=== PATIENT | male | born 1965 | race Caucasian/White ===

== ENCOUNTER → 2016-06-14 | Outpatient (CLI) | payer BC ==
[~2016-06-14] MED LIST: ACET-1256 PO; ASPI81TA28 PO; CLR10 PO; FLUT0.0529 NAE; LPR25 PO; LSX20 PO; POTA10CA28 PO; VALS320T PO; WARF-246 PO
[2016-06-14 09:58] LABS: ALT/SGPT 51 U/L (12-78); AST/SGOT 27 U/L (15-37); BLOOD UREA NITROGEN 15 mg/dl (7-18); BUN/CREATININE RATIO 12.8 (10-20); CALCIUM 8.6 mg/dl (8.5-10.1); CARBON DIOXIDE 26 mmol/L (21-32); CHLORIDE 107 mmol/L (98-107); CHOLESTEROL 147 mg/dl (0-200); GLUCOSE 91 mg/dl (70-99); POTASSIUM 4.2 mmol/L (3.5-5.1); SODIUM 142 mmol/L (136-145)
[2016-06-14 10:01] LABS: CHOLESTEROL/HDL RATIO 4.7; HDL CHOLESTEROL 31 mg/dl; LDL CHOLESTEROL CALCULATED 93 mg/dl; TRIGLYCERIDES 113 mg/dl (0-150); VERY LOW DENSITY LIPOPROT CALC 23 mg/dl
[2016-06-14 10:14] LABS: ESTIMATED AVERAGE GLUCOSE 105 mg/dl; HA1C FLAG Normal (Normal)
== END | disposition home or self-care (01) ==
LOC: C.LAB1850 08:23
PROVIDERS: ATTEND Internal Medicine
DX: I10 Essential (primary) hypertension (principal); E53.8 Deficiency of other specified B group vitamins; R73.03 Prediabetes

== ENCOUNTER → 2016-09-24 | Outpatient (CLI) | payer BC ==
[~2016-09-24] VITALS: Ht 182.9 cm; Wt 323.4 kg
[~2016-09-24] MED LIST changes: +BUPR-79 PO; +DOXY100C2 PO; +DVN80 PO; +FLUT0.15; +METO-551 PO; +WARF3TAB6 PO
[2016-09-24 14:45] VITALS: BP 119/80; PULSE 69; Ht 182.9 cm; Wt 323.4 kg
== END | disposition home or self-care (01) ==
LOC: C.NEUR 14:23
PROVIDERS: ATTEND Physician Assistant
DX: G47.33 Obstructive sleep apnea (adult) (pediatric) (principal)

== ENCOUNTER → 2017-02-09 | Outpatient (CLI) | payer BC ==
[~2017-02-09] MED LIST changes: -ACET-1256 PO; -FLUT0.0529 NAE; -LPR25 PO; -LSX20 PO; -POTA10CA28 PO; -VALS320T PO; -WARF-246 PO
[2017-02-09 17:23] LABS: BASO % 0.2 %; BASO ABS # 0.02 K/uL (0-0.2); COMPLETE YES; EOS % 2.1 %; IG% 0.2 %; MEAN CELL VOLUME 91.7 fL (80-100); MEAN CORPUSCULAR HEMOGLOBIN 31.3 pg (25-34); MEAN CORPUSCULAR HGB CONC 34.1 g/dl (32-36); MEAN PLATELET VOLUME 11.1 fL (7.4-10.4); NEUT % 74.5 %; PLATELET COUNT 184 K/uL (130-400); RED BLOOD COUNT 4.47 M/uL (4.7-6.1); WHITE BLOOD COUNT 9.37 K/uL (4.8-10.8)
[2017-02-09 17:25] LABS: URINE APPEARANCE CLEAR (CLEAR); URINE BILIRUBIN NEG (NEG); URINE COLOR YELLOW; URINE NITRITE NEG (NEG); URINE SPECIFIC GRAVITY 1.027 (1.000-1.030); UROBILINOGEN NEG (NEG)
[2017-02-09 17:43] LABS: MANUAL MICROSCOPIC REQUIRED? NO; REVIEW REQ? NO
== END | disposition home or self-care (01) ==
LOC: C.LAB1850 16:22
PROVIDERS: ATTEND Nurse Practitioner Adult Health
DX: N45.1 Epididymitis (principal); R68.83 Chills (without fever)

== ENCOUNTER → 2017-02-16 | Outpatient (CLI) | payer BC ==
[~2017-02-16] MED LIST changes: +OPTIRAY 320 IV PRN
--- NOTE | 2017-02-16 09:15 | DIAGNOSTIC IMAGING REPORT ---
CT OF THE ABDOMEN AND PELVIS WITH CONTRAST CLINICAL HISTORY: Inguinal hernia with Valsalva. Groin pain. COMPARISON STUDY: Testicular/groin ultrasound February 07, [address] of the abdomen and pelvis October 07, 2013. TECHNIQUE: Following IV administration of 93 mL of Optiray-320, axial images of the abdomen and pelvis were obtained from the lung bases to the proximal femurs. Images were reviewed in the axial, sagittal, and coronal planes. IV contrast was administered without complication. A dose lowering technique was utilized adhering to the principles of ALARA. CT DOSE: 1263.82 mGycm FINDINGS: Lung bases are clear. The liver, spleen, adrenal glands, kidneys and pancreas are normal. There is no hydronephrosis. There is no evidence for a bowel obstruction. The appendix is normal. Note is made of a 3.1 cm gas and fluid containing rounded structure which projects posterior to the symphysis pubis. No inguinal hernia is identified by CT. There is no fluid collection within the pelvis. No lymphadenopathy is present. No suspicious osseous lesions are identified. Scrotal surgical clips are noted. IMPRESSION: 1. No inguinal hernia identified. 2. Minimal groin infiltration, slightly greater on the left, a nonspecific finding. No fluid collection to suggest abscess. 3. 3.1 cm gas and fluid containing rounded structure adjacent to the symphysis pubis. This likely reflects a gas-filled parasymphyseal pubic cyst associated with degenerative joint disease. Electronically signed by: Wilder Wan M.D. 02/16/2017 9:14 AM Dictated Date/Time: 02/16/2017 8:56 AM
== END | disposition home or self-care (01) ==
LOC: C.CTS 08:17
PROVIDERS: ATTEND Surgery
DX: K40.90 Unilateral inguinal hernia, without obstruction or gangrene, not specified as recurrent (principal)

== ENCOUNTER → 2017-07-18 | Day surgery (SDC) | payer BC, OTHER ==
[2017-06-30 14:00] VITALS: Ht 182.9 cm; Wt 134.6 kg
[~2017-07-18] VITALS: Ht 182.9 cm; Wt 134.6 kg
[~2017-07-18] MED LIST changes: +AMOX500C3 PO; +ASPCH81X PO; -ASPI81TA28 PO; -DOXY100C2 PO; -FLUT0.15; +FLUT50SP45 NAE; +LIDOCAINE HCL 2% 2 ML VIAL (20MG/ML) ONE; -METO-551 PO; +METO25TA3 PO; -OPTIRAY 320 IV PRN; +PROPOFOL IV EMULSION 10 MG/ML 20 ML VIAL IV ONE; +SODIUM CHLORIDE 0.9% 500ML 500 ML IV ONE
--- NOTE | 2017-07-18 13:21 | Endo History and Physical ---
History & Physical Date of Service: Jul 18, 2017. Chief Complaint: Screening Referring Physician: Dr. Trev Grey History of Present Illness 52 yo CM who presents for screening colonoscopy. 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) Hx Internal Defibrillator: No Hx Pacemaker: No Hx Abdominal Surgery: No Hx of Implantable Prosthesis: No Hx Post-Op Nausea and Vomiting: No Hx Cancer Surgery: No Hx Thoracic Surgery: No Hx Orthopedic: No Hx Urinary Tract Surgery: No Family History None Social History Smoking Status: Never Smoker Hx Substance Use: No Hx Alcohol Use: No Allergies Coded Allergies: Oxaprozin (Verified Allergy, Intermediate, HIVES, 06/30/17) Pneumococcal Vaccines (Verified Allergy, Unknown, HIVES, 07/18/17) Current Medications Reported Home Medications Medications Dose Route/Sig Max Daily Dose Days Date Category Dose Instructions Jantoven (Warfarin Sodium) 3 Mg Tab 3 Mg PO DIRECTED 06/30/17 Reported TUESDAY, TUE, FRIDAYS TAKES 1 TAB ALL OTHER DAYS TAKES 1.5 TABS Diovan (Valsartan) 80 Mg Tab 80 Mg PO QAM 06/30/17 Reported Toprol-Xl (Metoprolol Succinate) 25 Mg Tabcr 25 Mg PO BID 06/30/17 Reported Allergy Nasal [place] [facility] [address] (Fluticasone Propionate (Nasal)) 50 Mcg/Act Spr 1 [place] [facility] HS 06/30/17 Reported Claritin (Loratadine) 10 Mg Tab 10 Mg PO QAM 06/30/17 Reported Wellbutrin Sr (Bupropion HCl) 150 Mg Ertab 150 Mg PO BID 06/30/17 Reported Aspirin Chewable (Aspirin) 81 Mg Chew 81 Mg PO QAM 06/30/17 Reported Amoxil (Amoxicillin) 500 Mg Cap 500 Mg PO DIRECTED PRN 06/30/17 Reported Vital Signs Weight (Kilograms): 134.55 Height (Feet): 6 Height (Inches): 0 Date Time Temp Pulse Resp B/P (MAP) Pulse Ox O2 Delivery O2 Flow Rate FiO2 07/18/17 12:55 36.7 67 14 126/76 (93) 96 Room Air Physical Exam General Appearance: WD/WN, no apparent distress Respiratory/Chest: Auscultation: breath sounds normal Cardiovascular: Heart Auscultation: RRR Abdomen: Bowel Sounds: normal Inspection & Palpation: soft, non-distended, no tenderness, guarding & rebound Assessment and Plan Assessment: 52 yo CM who presents for screening colonoscopy. Plan: Proceed with colonoscopy.
--- NOTE | 2017-07-18 14:12 | Discharge Instructions ---
Endoscopy Patient Instructions Date / Procedure(s) Performed Jul 18, 2017. Colonoscopy Allergy Information Coded Allergies: Oxaprozin (Verified Allergy, Intermediate, HIVES, 06/30/17) Pneumococcal Vaccines (Verified Allergy, Unknown, HIVES, 07/18/17) Discharge Date / Findings Jul 18, 2017. Internal hemorrhoids Medication Instructions Stopped Medication(s): Patient was told to stop coumadin. OK to resume all medications today as prescribed Reported Home Medications Medications Dose Route/Sig Max Daily Dose Days Date Category Dose Instructions Jantoven (Warfarin Sodium) 3 Mg Tab 3 Mg PO DIRECTED 06/30/17 Reported TUESDAY, TUE, FRIDAYS TAKES 1 TAB ALL OTHER DAYS TAKES 1.5 TABS Diovan (Valsartan) 80 Mg Tab 80 Mg PO QAM 06/30/17 Reported Toprol-Xl (Metoprolol Succinate) 25 Mg Tabcr 25 Mg PO BID 06/30/17 Reported Allergy Nasal [place] [address] (Fluticasone Propionate (Nasal)) 50 Mcg/Act Spr 1 [place] [facility] HS 06/30/17 Reported Claritin (Loratadine) 10 Mg Tab 10 Mg PO QAM 06/30/17 Reported Wellbutrin Sr (Bupropion HCl) 150 Mg Ertab 150 Mg PO BID 06/30/17 Reported Aspirin Chewable (Aspirin) 81 Mg Chew 81 Mg PO QAM 06/30/17 Reported Amoxil (Amoxicillin) 500 Mg Cap 500 Mg PO DIRECTED PRN 06/30/17 Reported Provider Instructions Activity Restrictions - No exercising or heavy lifting for 24 hours. - Do not drink alcohol the day of the procedure. - Do not drive a car or operate machinery until the day after the procedure. - Do not make any important decisions or sign important papers in 24 hours after the procedure. Following Day: - Return to full activity which may include returning to work/school. Diet Start your diet with liquids and light foods (jello, soup, juice, toast). Then eat your usual diet if not nauseated. Treatment For Common After Affects For mild abdominal pain, bloating, or excessive gas: - Rest - Eat lightly - Lie on right side Follow-Up Information Follow-up with Dr. Trev Grey as scheduled Anesthesia Information What You Should Know You have had a procedure that required some medicine to reduce anxiety and discomfort. This treatment is called moderate sedation. After receiving the treatment, you may be sleepy, but you will be able to breathe on your own. The effects of the treatment may last for several hours. Follow these instructions along with Activity/Diet recommendations noted above: * Do NOT do anything where dizziness or clumsiness would be dangerous. * Rest quietly at home today, then you can be up and about tomorrow. * Have a responsible person stay with you the rest of today. * You may have had an I.V. today. If so, you may take the dressing off later today. Recommendations Call your doctor if: * Trouble breathing * Continuous vomiting for more than 24 hours * Temperature above 101 degrees * Severe abdominal pain or bloating * Pain not relieved by pain medicine ordered * There is increased drainage or redness from any incision * A large amount of rectal bleeding greater than 2-3 tablespoons. (If you had a polyp/s removed or have hemorrhoids, a small amount of blood - from the rectum is to be expected.) * You have any unanswered questions or concerns. IN THE EVENT OF A SERIOUS EMERGENCY, GO TO THE NEAREST EMERGENCY ROOM Your discharge instructions were prepared by provider Jacky Peraza. Patient Instructions Signature Page Don Roberts Patient (or Guardian) Signature/Date: I have read and understand the instructions given to me by my caregivers. Caregiver/RN/Doctor Signature/Date: The above-named patient and/or guardian has received patient instructions on this date. + Original Patient Signature Page (only) stays with chart. Please make copy for patient.
--- NOTE | 2017-07-18 14:14 | GI REPORT ---
Procedure Date: 07/18/2017 1:49 PM Procedure: Colonoscopy Indications: Screening for colorectal malignant neoplasm Medicines: Monitored Anesthesia Care Complications: No immediate complications. Estimated Blood Loss: Estimated blood loss: none. Procedure: Pre-Anesthesia Assessment: - Prior to the procedure, a History and Physical was performed, and patient medications and allergies were reviewed. The patient's tolerance of previous anesthesia was also reviewed. The risks and benefits of the procedure and the sedation options and risks were discussed with the patient. All questions were answered, and informed consent was obtained. Prior Anticoagulants: The patient last took aspirin 1 day and Coumadin (warfarin) 4 days prior to the procedure. ASA Grade Assessment: III - A patient with severe systemic disease. After reviewing the risks and benefits, the patient was deemed in satisfactory condition to undergo the procedure. After I obtained informed consent, the scope was passed under direct vision. Throughout the procedure, the patient's blood pressure, pulse, and oxygen saturations were monitored continuously. The Scope was introduced through the anus and advanced to the terminal ileum. The colonoscopy was performed without difficulty. The patient tolerated the procedure well. The quality of the bowel preparation was good. The terminal ileum, ileocecal valve, appendiceal orifice, and rectum were photographed. Findings: The perianal and digital rectal examinations were normal. Non-bleeding internal hemorrhoids were found during retroflexion. The hemorrhoids were small. Impression: - Non-bleeding internal hemorrhoids. - No specimens collected. Recommendation: - Resume previous diet. - Continue present medications. - Repeat colonoscopy in 10 years for surveillance. - Return to primary care physician as previously scheduled. Jacky Peraza, 07/18/2017 2:14:16 PM This report has been signed electronically. Note Initiated On: 07/18/2017 1:49 PM I attest to the content of the Intraoperative Record and orders documented therein, exceptions below
--- NOTE | 2017-07-18 14:34 | Anesthesiology Progress Note ---
Anesthesia Post Op Note Date & Time Jul 18, 2017 at 14:34 Vital Signs Pain Intensity: 0 Vital Signs Past 12 Hours Date Time Temp Pulse Resp B/P (MAP) Pulse Ox O2 Delivery O2 Flow Rate FiO2 07/18/17 14:30 59 18 121/64 (83) 98 Room Air 07/18/17 14:13 62 16 105/60 (75) 98 Room Air 07/18/17 12:55 36.7 67 14 126/76 (93) 96 Room Air Notes Mental Status: alert / awake / arousable, participated in evaluation Pt Amnestic to Procedure: Yes Nausea / Vomiting: adequately controlled Pain: adequately controlled Airway Patency, RR, SpO2: stable & adequate BP & HR: stable & adequate Hydration State: stable & adequate Anesthetic Complications: no major complications apparent
[2017-07-18 14:46] VITALS: BP 121/62; PULSE 60; O2SAT 97
== END | disposition home or self-care (01) ==
LOC: C.GI 12:27
PROVIDERS: ATTEND Internal Medicine
DX: Z12.11 Encounter for screening for malignant neoplasm of colon (principal); K64.8 Other hemorrhoids; I11.9 Hypertensive heart disease without heart failure; I51.9 Heart disease, unspecified; D68.51 Activated protein C resistance; Z88.8 Allergy status to other drugs, medicaments and biological substances; Z79.01 Long term (current) use of anticoagulants; Z79.899 Other long term (current) drug therapy; Z79.82 Long term (current) use of aspirin